=== PATIENT | male | born 1985 ===

== ENCOUNTER 2017-08-27 13:54 | Emergency (ER) | payer OTHER ==
[2017-08-27 14:23] VITALS: BP 155/77
--- NOTE | 2017-08-27 14:45 | UC ---
Throat Pain/Nasal Jose Luis HPI - HPI Summary HPI Summary: Started getting a sore throat with sensation of swallowing a lump all the time about 2 weeks ago. Now in the last week has had a productive cough in the mornings and some PND. Denies fever, constant cough, or trouble breathing. Just moved here from [place] over the last 2 weeks, has [id number] son. Denies recent itchy eyes or sneezing, no change from typical reflux pattern. - History of Current Complaint Chief Complaint: UCRespiratory Stated Complaint: SORE THROAT Time Seen by Provider: 08/27/17 14:21 Hx Obtained From: Patient Onset/Duration: Gradual Onset, Lasting Weeks Severity: Mild Pain Intensity: 5 Cough: Productive Associated Signs & Symptoms: Positive: Nasal Discharge. Negative: Wheezing, Hoarseness, Sinus Discomfort - Allergies/Home Medications Allergies/Adverse Reactions: Allergies Allergy/AdvReac Type Severity Reaction Status Date / Time No Known Allergies Allergy Verified 08/27/17 14:23 Home Medications: Home Medications Omeprazole CAP* [Prilosec CAP* 20 MG] 1 tab PO DAILY 08/27/17 [History Confirmed 08/27/17] PMH/Surg Hx/FS Hx/Imm Hx - Surgical History Surgical History: None - Family History Known Family History: Negative: Blood Disorder - Social History Occupation: Employed Full-time Lives: With Family Alcohol Use: Occasionally Substance Use Type: Marijuana Smoking Status (MU): Never Smoked Tobacco Review of Systems Constitutional: Negative Skin: Negative Eyes: Negative ENT: Sore Throat Respiratory: Negative Cardiovascular: Negative Gastrointestinal: Negative Genitourinary: Negative Motor: Negative Neurovascular: Negative Musculoskeletal: Negative Neurological: Negative Psychological: Negative Is Patient Immunocompromised?: No All Other Systems Reviewed And Are Negative: Yes Physical Exam Triage Information Reviewed: Yes Appearance: Well-Appearing, No Pain Distress, Well-Nourished Vital Signs: Initial Vital Signs Temp 97.8 F 08/27/17 14:21 Pulse 93 08/27/17 14:21 Resp 12 08/27/17 14:21 BP 155/77 08/27/17 14:21 Pulse Ox 97 08/27/17 14:21 Vital Signs Reviewed: Yes Eye Exam: Normal Eyes: Positive: Conjunctiva Clear ENT Exam: Normal ENT: Positive: Normal ENT inspection, Hearing grossly normal, Pharynx normal, TMs normal. Negative: Pharyngeal erythema, Nasal congestion, Nasal drainage Dental Exam: Normal Neck exam: Normal Neck: Positive: Supple, Nontender, No Lymphadenopathy Respiratory Exam: Normal Respiratory: Positive: Chest non-tender, Lungs clear, Normal breath sounds, No respiratory distress, No accessory muscle use Cardiovascular Exam: Normal Cardiovascular: Positive: RRR, No Murmur Musculoskeletal Exam: Normal Neurological Exam: Normal Neurological: Positive: Alert Psychological Exam: Normal Skin Exam: Normal Throat Pain/Nasal Course/Dx - Course Course Of Treatment: Discussed infectious and non-infectious causes of ST, advised on treating allergies and reflux on his own. Encouraged him to seek out primary care provider if this doesn't work. - Differential Dx/Diagnosis Provider Diagnoses: GERD. globus sensation Discharge - Sign-Out/Discharge Documenting (check all that apply): Discharge/Admit/Transfer - Discharge Plan Condition: Stable Disposition: HOME Patient Education Materials: Pharyngitis (ED) Referrals: No Primary Care Phys,NOPCP [Primary Care Provider] - [facility] [place] [facility] [Outside] Additional Instructions: As we discussed, the length and character of your symptoms could be from a virus (in which case it should resolve in the next week or so on its own) or from non-infectious irritants. In adults, allergies and reflux account for most cases of sore throat and sensation of throat lump. To treat allergies: I recommend you use a nasal steroid 1-2 times daily and a daily nondrowsy antihistamine such as cetirizine or fexofenadine. To treat reflux: Either take your omeprazole twice daily (for a total of 40 mg) , or take 300mg ranitidine at bedtime in addition to your omeprazole. - Billing Disposition and Condition Condition: STABLE Disposition: Home
== END 2017-08-27 14:45 | disposition home or self-care (01) ==
LOC: UCEAST 13:54
DX: K21.9 Gastro-esophageal reflux disease without esophagitis (principal)
CPT/HCPCS: 99201; G0463